=== PATIENT | female | born 2000 | race African-American/Black ===

== ENCOUNTER 2022-05-25 15:23 | Emergency (ER) | payer SELFPAY ==
[~2022-05-25] VITALS: Ht 167.6 cm; Wt 101.0 kg
[2022-05-25 15:39] VITALS: BP 135/88
== END 2022-05-25 18:58 | disposition left against medical advice (07) ==
LOC: ER 15:23
DX: Z53.21 Procedure and treatment not carried out due to patient leaving prior to being seen by health care provider (principal)